=== PATIENT | male | born 1975 | race Two or more races ===

== ENCOUNTER 2020-03-31 07:32 | Day surgery (SDC) | payer BC ==
[2020-03-31] VITALS (9 sets, daily range): BP systolic 109–126; BP diastolic 72–81
[~2020-03-31] VITALS: Ht 177.8 cm; Wt 81.6 kg
--- NOTE | 2020-03-31 07:28 | Anethesia Preoperative Eval ---
Anesthesia Pre-op PMH/ROS General Date of Evaluation: Mar 31, 2020 Time of Evaluation: 07:28 Anesthesiologist: umair ASA Score: ASA 2 Mallampati Score Class I : Soft palate, uvula, fauces, pillars visible Class II: Soft palate, uvula, fauces visible Class III: Soft palate, base of uvula visible Class IV: Only hard plate visible Mallampati Classification: Class II Surgeon: kermit Diagnosis: gerd, hx/o polyps Surgical Procedure: egd/colonoscopy Anesthesia History: none Social History: smoking - nonsmoker Family History: no anesthesia problems Allergies: Coded Allergies: No Known Allergies (Unverified , 03/29/20) Medications: see eMAR Patient NPO?: Yes Past Medical History Gastrointestinal/Genitourinary: Reports: GERD Anesthesia Pre-op Phys. Exam Physician Exam Last Vital Signs Date Time Temp Pulse Resp B/P (MAP) Pulse Ox O2 Delivery O2 Flow Rate FiO2 03/31/20 08:02 Room Air 03/31/20 07:51 98.1 76 16 126/77 100 Constitutional: NAD Neurologic: CN 2-12 intact Cardiovascular: RRR Respiratory: CTA Gastrointestinal: S/NT/ND Airway Exam Mallampati Score: Class II MO: full Neck: flexible TMD: 2fb ROM: full Teeth: intact Anesthesia Pre-op A/P Labs Microbiology Date/Time Source Procedure Growth Status 03/29/20 09:15 Nasopharynx SARS-CoV-2 RdRp Gene Assay - Final Complete Risk Assessment & Plan Assessment: asa2 Plan: mac Status Change Before Surgery: No Pre-Antibiotics Drug: Lori Delgado MD Mar 31, 2020 07:28
[~2020-03-31 07:32] MED LIST: Atropine Inj 1mg/10ml Syr IVP PRN; DiphenhydrAMINE 50mg/ml Inj IVP PRN; LR 1000ml 1,000 ML IVLG SCH; Labetalol 5mg/ml 20ml vial IV PRN; Midazolam 2mg/2ml Inj IVP PRN; fentaNYL 100 mcg/2 mL IV PRN
[2020-03-31] MEDS ORDERED: LR 1000ml ONE (07:33)
[2020-03-31] MEDS ORDERED: Lidocaine 1% MPF 10mg/ml 5ml ONE (07:33)
[2020-03-31] MEDS ORDERED: Atropine Sulfate 0.4mg/ml inj ONE (07:33)
--- NOTE | 2020-03-31 09:05 | Pre-Procedure Note/Attestation ---
Pre-Procedure Note/Attestation Complete Prior to Procedure Planned Procedure: not applicable Procedure Narrative: esophagogastroduodenoscopy and colonoscopy Indications for Procedure Pre-Operative Diagnosis: GERD, abd pain Attestation I attest that I discussed the nature of the procedure; its benefits; risks and complications; and alternatives (and the risks and benefits of such alternati ves), prior to the procedure, with the patient (or the patient's legal instruments sales representative). I attest that, if there was a reasonable possibility of needing a blood transfusion, the patient (or the patient's legal instruments sales representative) was given the [facility] standardized written summary, pursuant to the [employer] Blood Safety Act ([place] Health and Safety Code # 1645, as amended). I attest that I re-evaluated the patient just prior to the surgery and that there has been no change in the patient's H&P, except as documented below: Darek Meehan MD Mar 31, 2020 09:05
--- NOTE | 2020-03-31 09:06 | General Progress Note ---
Subjective ROS Limited/Unobtainable: Yes Allergies: Coded Allergies: No Known Allergies (Unverified , 03/29/20) Objective Last 24 Hour Vital Signs Date Time Temp Pulse Resp B/P (MAP) Pulse Ox O2 Delivery O2 Flow Rate FiO2 03/31/20 08:02 Room Air 03/31/20 07:51 98.1 76 16 126/77 100 Room Air Height (Feet): 5 Height (Inches): 10.00 Weight (Pounds): 180 General Appearance: alert EENT: normal ENT inspection Neck: normal alignment Cardiovascular: normal rate Respiratory/Chest: lungs clear Abdomen: normal bowel sounds, non tender, soft Extremities: non-tender Assessment/Plan Assessment/Plan: plan EGD and colonoscopy Darek Meehan MD Mar 31, 2020 09:06
--- NOTE | 2020-03-31 09:07 | Short Stay Surgery H&P ---
History of Present Illness History of Present Illness Chief Complaint abd pain, GERD HPI Ali Dr Kowalski is a 45 year old male who was admitted on for Gerd,Hx Of Polyps Patient History Allergies: Coded Allergies: No Known Allergies (Unverified , 03/29/20) PAST MEDICAL HISTORY: (1) GERD (gastroesophageal reflux disease) Medication History No Active Prescriptions or Reported Meds Review of Systems Cardiovascular: Reports: no symptoms Respiratory: Reports: no symptoms Skeletal: Reports: no symptoms Gastrointestinal: Reports: no symptoms Neurologic: Reports: no symptoms Endocrine: Reports: no symptoms Physical Exam Vital Signs Last Vital Signs Date Time Temp Pulse Resp B/P (MAP) Pulse Ox O2 Delivery O2 Flow Rate FiO2 03/31/20 08:02 Room Air 03/31/20 07:51 98.1 76 16 126/77 100 Skin: normal HENT: normal Heart: normal Lungs: normal Abdomen: normal Extremities: normal Plan Plan of Care esophagogastroduodenoscopy and colonoscopy Attestation Are the patient's medical conditions optimized for surgery? Attestation Response: yes Darek Meehan MD Mar 31, 2020 09:07
--- NOTE | 2020-03-31 09:36 | Endoscopy Procedure Note ---
Endoscopy Procedure Note General Indication for Procedure: abd pain, GERD Procedures Performed: EGD, colonoscopy Operative Findings/Diagnosis: gastritis, hemorrhoids Specimen: yes Pt Tolerated Procedure Well: Yes Estimated Blood Loss: none Anesthesia Anesthesiologist: matthew lloyd Anesthesia: MAC Inserted Devices Implant(s) used?: No Quality Quality of Bowel Preparation: Excellent Did scope reach the cecum?: Yes Was there any complications?: No GI Core Measures 50 yrs or older w/o bx or poly: No 10yrs. F/U recommended: Yes If not recommended, why?: Above average risk 18 years or older w/prev. colo: No Darek Meehan MD Mar 31, 2020 09:36
--- NOTE | 2020-03-31 09:52 | Immediate Post-Op Evaluation ---
Immediate Post-Op Evalulation Immediate Post-Op Evalulation Procedure: egd/colonoscopy w/bx Date of Evaluation: Mar 31, 2020 Time of Evaluation: 09:51 IV Fluids: 750ml lr Blood Products: none Estimated Blood Loss: negligible Blood Pressure Systolic: 120 Blood Pressure Diastolic: 78 Pulse Rate: 67 Respiratory Rate: 18 O2 Sat by Pulse Oximetry: 100 Temperature (Fahrenheit): 97.3 Pain Score (1-10): 0 Nausea: No Vomiting: No Complications none Patient Status: awake, reacts, patent Hydration Status: adequate Drug: Lori Delgado MD Mar 31, 2020 09:52
--- NOTE | 2020-03-31 09:54 | 48 Hour Post Anesthesia Eval ---
Post Anesthesia Evaluation Procedure: egd/colonoscopy w/bx Date of Evaluation: Mar 31, 2020 Time of Evaluation: 09:53 Blood Pressure Systolic: 122 0: 77 Pulse Rate: 69 Respiratory Rate: 18 Temperature (Fahrenheit): 97.3 O2 Sat by Pulse Oximetry: 100 Airway: patent Nausea: No Vomiting: No Pain Intensity: 0 Hydration Status: adequate Cardiopulmonary Status: stable Mental Status/LOC: patient returned to baseline Post-Anesthesia Complications: none Follow-up care needed: N/A Lori Barrera MD Mar 31, 2020 09:54
--- NOTE | 2020-03-31 13:30 | Procedure Note ---
DATE OF PROCEDURE: 03/31/2020 SURGEON: Darek Meehan MD. PROCEDURE: Upper endoscopy with biopsy and colonoscopy. ANESTHESIA: Per Dr. Sherwood. INSTRUMENT: Olympus adult flexible upper endoscope and colonoscope. INDICATION: 1. Chronic GERD, not responding to PPI. 2. Abdominal pain. REASON FOR PROCEDURE: The procedure, risks, benefits, and possible consequences, including hemorrhage, aspiration, perforation and infection, and alternative treatments, were explained to the patient/legal guardian by Dr. Darek Meehan and the patient/legal guardian understood and accepted these risks. PROCEDURE IN DETAIL: After informed consent was obtained and the patient was adequately sedated, Olympus upper endoscope was advanced from mouth into the second portion of the duodenum and retroflexion was performed in the stomach. The patient had diffuse mild gastritis. Random biopsy from antrum and body was obtained to rule out H. pylori infection. At the GE junction, there was questionable short-segment of Roman's esophagus. Biopsy from this area was obtained. The rest of the examination grossly looked within normal limits. At this time, the upper endoscope was retrieved. The patient was turned over for colonoscopy. First, rectal examination was performed which was positive for internal hemorrhoids. Then, the scope was advanced from the rectum into the cecum, then subsequently into terminal ileum. Quality of prep was excellent. The patient had normal colonoscopy examination. No obvious mass, polyp, diverticulosis, or any pathology was seen. Retroflexion of rectum showed evidence of medium/small nonbleeding internal hemorrhoids. SUMMARY OF FINDINGS: 1. Gastritis, status post biopsy to rule out H. pylori infection. 2. Questionable short-segment of Roman's esophagus, status post biopsy. 3. Internal hemorrhoids. RECOMMENDATIONS: Followup biopsy results and treat accordingly. Darek Meehan M.D. DR: Suni JOB#: [id number] CC:
== END 2020-03-31 10:50 | disposition home or self-care (01) ==
LOC: GAS 07:32
DX: K21.9 Gastro-esophageal reflux disease without esophagitis (principal); R10.9 Unspecified abdominal pain; K29.70 Gastritis, unspecified, without bleeding; K64.8 Other hemorrhoids; Z86.010 Personal history of colon polyps
CPT/HCPCS: 43239; 45378; 94003; J0461; J2704; J7120; U0002; 94150